=== PATIENT | female | born 1950 | race Caucasian/White ===

== ENCOUNTER → 2016-09-16 | Outpatient (CLI) | payer MEDICARE ==
[~2016-09-16] MED LIST: BISA5TAB8 PO; CARV3.12T PO; CLIN-79 PO; CYCL10TA45 PO; ESCI10TA49 PO; ESTR0.5T PO; FLUC100T6 PO; FOLI20CA PO; FURO-125 PO; GBPN300C PO; GFN600TCR PO; HYDR-3811 PO; HYDROXYSUT PO; LACT1CAP69 PO; LISI5TAB14 PO; LORA10TA7 PO; LSNP20T PO; MELO-249 PO; METF500T4 PO; MINO100C2 PO; MORP30TA PO; MULT-954 PO; SPRN25T PO; SULF500T7 PO; VITA-189 PO
[2016-09-16 14:51] LABS: BASOPHILS % (AUTO) 0 % (0-2); EOSINOPHILS # (AUTO) 0.2 10^3uL; EOSINOPHILS % (AUTO) 2 % (0-4); LYMPHOCYTES # (AUTO) 3.1 X10^3; MEAN CORPUSCULAR HGB CONC 32.6 g/dL (31.0-37.0); MEAN PLATELET VOLUME 10.2 FL (6.0-9.5); MONOCYTES # (AUTO) 0.4 X10^3; MONOCYTES % (AUTO) 5 % (3-11); NEUTROPHILS # (AUTO) 5.8 X10^3; NEUTROPHILS % (AUTO) 61 % (51-67); PLATELET COUNT 197 10^3uL (150-450)
[2016-09-16 14:55] LABS: MEAN CORPUSCULAR HEMOGLOBIN 33.7 PG (26.0-34.0); MEAN CORPUSCULAR VOLUME 103 FL (80-100)
[2016-09-16 15:06] LABS: ALBUMIN 4.5 g/dL (3.4-5.0); ANION GAP 15.1 MEQ/L (3-15); CALCULATED IONIZED CALCIUM 4.2 mg/dL (3.8-4.6); TOTAL PROTEIN 7.8 g/dL (6.4-8.5)
[2016-09-16 15:14] LABS: BILIRUBIN,URINE Negative (Negative); CLARITY,URINE Clear; COLOR,URINE Yellow; GLUCOSE, URINE (UA) Negative (Negative); LEUKOCYTE ESTERASE ,URINE Negative (Negative); UROBILINOGEN,URINE 0.2 mg/dL (0.2-1.0)
[2016-09-16 15:33] LABS: ERYTHROCYTE SEDIMENTATION RT* 27 mm/hr (0-23)
[2016-09-16 15:35] LABS: RBC,URINE 0-2 /HPF; URINE CENTRIFUGED VOLUME 12 mL
== END ==
LOC: LAB 14:28
PROVIDERS: ATTEND Internal Medicine Rheumatology
DX: Z51.81 Encounter for therapeutic drug level monitoring (principal); Z79.899 Other long term (current) drug therapy; M06.09 Rheumatoid arthritis without rheumatoid factor, multiple sites; E11.9 Type 2 diabetes mellitus without complications; I50.33 Acute on chronic diastolic (congestive) heart failure; R53.83 Other fatigue
CPT/HCPCS: 36415; 80053; 80061; 81003; 81015; 82043; 83036; 83880; 84443; 84550; 85025; 85652; 86140; 86141